=== PATIENT | male | born 1955 | race African-American/Black ===

== ENCOUNTER 2018-04-18 12:55 | Day surgery (SDC) | payer OTHER ==
[2018-04-18] MEDS ORDERED: PROPOFOL 20 ML ×2 (15:13→15:35)
== END 2018-04-18 16:42 | disposition home or self-care (01) ==
LOC: GIL 12:55 → SDS 12:55 → GIL 16:42
DX: Z12.11 Encounter for screening for malignant neoplasm of colon (principal); D12.5 Benign neoplasm of sigmoid colon; D12.4 Benign neoplasm of descending colon
CPT/HCPCS: 45380; 88305